=== PATIENT | male | born 1995 | race Caucasian/White ===

== ENCOUNTER 2023-12-30 13:34 | Emergency (ER) | payer SELFPAY ==
--- NOTE | 2023-12-30 14:31 | ER ---
Nurse's Notes [facility] Name: Jose Miguel Aguirre Age: 28 yrs Sex: Male : 1995 Arrival Date: 12/30/2023 Time: 13:34 Bed 12 Private MD: Diagnosis: Unspecified otitis externa, right ear Presentation: 12/29 13:55 Chief complaint: Patient states: right ear pain X2 weeks. Pt states that this started cm10 after cleaning his ear. Pt reports decreased hearing to right ear. Coronavirus screen: Client denies travel out of the [place] in the last 14 days. At this time, the client does not indicate any symptoms associated with coronavirus-19. Ebola Screen: Patient denies travel to an Ebola-affected area in the 21 days before illness onset. No symptoms or risks identified at this time. Initial Sepsis Screen: Does the patient meet any 2 criteria? HR > 90 bpm. Does the patient have a suspected source of infection? No. Patient's initial sepsis screen is negative. Risk Assessment: Do you want to hurt yourself or someone else? Patient reports no desire to harm self or others. Onset of symptoms was December 30, 2023. 13:55 Method Of Arrival: Ambulatory cm10 13:55 Acuity: JANELL 4 cm10 Triage Assessment: 13:57 General: Appears in no apparent distress. comfortable, Behavior is calm, cooperative. cm10 Pain: Complains of pain in right ear Pain currently is 4 out of 10 on a pain scale. EENT: Ear canal clear on right ear Reports pain in right ear. Neuro: No deficits noted. Level of Consciousness is awake, alert, obeys commands, Oriented to person, place, time, situation, Appropriate for age. Respiratory: No deficits noted. Airway is patent Respiratory effort is even, unlabored, Respiratory pattern is regular, symmetrical. Historical: - Allergies: 13:57 No Known Allergies; cm10 - Home Meds: 13:57 None [Active]; cm10 - PMHx: 13:57 None; cm10 - PSHx: 13:57 None; cm10 - Immunization history:: Adult Immunizations up to date. - Infectious Disease History:: Denies. - Social history:: Smoking status: Patient denies any tobacco usage or history of. Screenin:35 [facility] ED Fall Risk Assessment (Adult) History of falling in the last 3 months, cm10 including since admission No falls in past 3 months (0 pts) Confusion or Disorientation No (0 pts) Intoxicated or Sedated No (0 pts) Impaired Gait No (0 pts) Mobility Assist Device Used No (0 pt) Altered Elimination No (0 pt) Score/Fall Risk Level 0 - 2 = Low Risk Oriented to surroundings, Maintained a safe environment, Hourly rounding (assess needs \T\ fall precautionary measures) done. Abuse screen: Denies threats or abuse. Denies injuries from another. Nutritional screening: No deficits noted. Tuberculosis screening: No symptoms or risk factors identified. Assessment: 14:00 General: Appears comfortable, Behavior is calm, cooperative. Pain: Complains of pain in aa5 right ear. Neuro: Level of Consciousness is awake, alert, obeys commands, Oriented to person, place, time, situation. Cardiovascular: Patient's skin is warm and dry. Respiratory: Airway is patent Respiratory effort is even, unlabored, Respiratory pattern is regular, symmetrical. GI: No signs and/or symptoms were reported involving the gastrointestinal system. : No signs and/or symptoms were reported regarding the genitourinary system. EENT: Reports pain in right ear. Derm: Skin is pink, warm \T\ dry. Musculoskeletal: Range of motion: intact in all extremities. 14:40 Reassessment: Patient is alert, oriented x 3, equal unlabored respirations, skin aa5 warm/dry/pink. Vital Signs: 13:55 BP 140 / 77; Pulse 100; Resp 18; Temp 98.5; Pulse Ox 98% on R/A; Weight 70.76 kg; cm10 Height 6 ft. 4 in. ; Pain 4/10; 13:55 Body Mass Index 18.99 (70.76 kg, 193.04 cm) cm10 13:55 Pain Scale: Adult cm10 ED Course: 13:38 Patient arrived in ED. mg5 13:51 Keith Prescott PA is PHCP. cp 13:51 Kahlil Goode MD is Attending Physician. cp 13:57 Triage completed. cm10 13:58 Arm band placed on Patient placed in an exam room, on a stretcher. cm10 14:00 Patient has correct armband on for positive identification. aa5 14:30 Siena Ko MD is Referral Physician. cp 14:35 Provided Education on: Follow-up instructions. Cardiac monitoring not applicable on cm10 this patient. 14:36 No provider procedures requiring assistance completed. Patient did not have IV access cm10 during this emergency room visit. 14:42 Mary Cordova, RN is Primary Nurse. aa5 Administered Medications: No medications were administered Medication: 14:35 VIS not applicable for this client. cm10 Outcome: 14:31 Discharge ordered by MD. cp 14:40 Discharged to home ambulatory, aa5 14:40 Condition: stable 14:40 Discharge instructions given to patient, Instructed on discharge instructions, follow up and referral plans. medication usage, Demonstrated understanding of instructions, follow-up care, medications, Prescriptions given X 2, 14:42 Patient left the ED. aa5 Signatures: Mary Cordova, RN RN aa5 Keith Prescott PA PA cp Martinez, Clarissa RN RN cm10 Lyla Dodge mg5 Corrections: (The following items were deleted from the chart) 14:51 14:20 Reassessment: Patient is alert, oriented x 3, equal unlabored respirations, skin aa5 warm/dry/pink. aa5 14:52 14:35 Patient has correct armband on for positive identification. cm10 aa5
--- NOTE | 2023-12-30 14:31 | EDPHYS ---
Physician Documentation [facility] Name: Jose Miguel Aguirre Age: 28 yrs Sex: Male : 1995 Arrival Date: 12/30/2023 Time: 13:34 Bed 12 Private MD: ED Physician Kahlil Goode HPI: 12/29 14:25 This 28 yrs old Male presents to ER via Ambulatory with complaints of Ear Problem. cp 14:25 The patient presents with pain, that is acute. The complaints affect the right ear. cp Onset: The symptoms/episode began/occurred 2 week(s) ago. Associated signs and symptoms: Pertinent positives: slight cough, radiating pain to jaw. Patient reports pain started after using q-tip to clean ear. Historical: - Allergies: 13:57 No Known Allergies; cm10 - Home Meds: 13:57 None [Active]; cm10 - PMHx: 13:57 None; cm10 - PSHx: 13:57 None; cm10 - Immunization history:: Adult Immunizations up to date. - Infectious Disease History:: Denies. - Social history:: Smoking status: Patient denies any tobacco usage or history of. ROS: 14:26 Constitutional: Negative for body aches, chills, fever, poor PO intake, cp 14:26 ENT: Positive for ear pain, Negative for drainage from ear(s), sore throat, difficulty swallowing, difficulty handling secretions, 14:26 Cardiovascular: Negative for chest pain, 14:26 Eyes: Negative for injury, pain, redness, and discharge, cp 14:26 Respiratory: Positive for slight cough, Negative for shortness of breath, wheezing, 14:26 Neuro: Negative for altered mental status, headache, cp 14:26 All other systems are negative, Exam: 14:27 Head/Face: Normocephalic, atraumatic. cp 14:27 Constitutional: The patient appears in no acute distress, alert, awake, non-toxic, well developed, well nourished, 14:27 Eyes: Periorbital structures: appear normal, Conjunctiva: normal, no exudate, no injection, Sclera: no appreciated abnormality, Lids and lashes: appear normal, bilaterally, 14:27 ENT: External ear(s): pain with movement, that is mild, of the right ear canal, Ear canal(s): erythema, of the right canal, swelling, of the right canal, TM's: bulging, on the right, Examination of the other ear shows no obvious abnormality, Nose: is normal, Mouth: Lips: moist, Oral mucosa: pink and intact, moist, Posterior pharynx: Airway: no evidence of obstruction, patent, 14:27 Neck: ROM/movement: Meningeal signs: are not present, nuchal rigidity, is not appreciated, 14:27 Chest/axilla: Inspection: normal, Vital Signs: 13:55 BP 140 / 77; Pulse 100; Resp 18; Temp 98.5; Pulse Ox 98% on R/A; Weight 70.76 kg; cm10 Height 6 ft. 4 in. ; Pain 4/10; 13:55 Body Mass Index 18.99 (70.76 kg, 193.04 cm) cm10 13:55 Pain Scale: Adult cm10 MDM: 14:00 Patient medically screened. cp 14:30 Differential diagnosis: otitis media, otitis externa, ruptured TM, foreign body, acute cp otalgia, cerumen impaction. 14:30 Data reviewed: vital signs, nurses notes, and as a result, I will discharge patient. cp Counseling: I had a detailed discussion with the patient and/or guardian regarding the historical points, exam findings, and any diagnostic results supporting the discharge/admit diagnosis, to return to the emergency department if symptoms worsen or persist or if there are any questions or concerns that arise at home. Administered Medications: No medications were administered Disposition: 17:49 Co-signature as Attending Physician, Kahlil Goode MD I reviewed the patient's care rn provided by the Advanced Practice Provider and agree with the diagnosis and treatment plan. Disposition Summary: 12/30/23 14:31 Discharge Ordered Notes: Location: Home cp Problem: new cp Symptoms: are unchanged cp Condition: Stable cp Diagnosis - Unspecified otitis externa, right ear cp Followup: cp - With: Siena Ko MD - When: 1 week - Reason: pain continues Discharge Instructions: - Discharge Summary Sheet cp - Ear Drops, Adult cp - Otitis Externa cp Forms: - Medication Reconciliation Form cp - Antibiotic Education cp - Prescription Opioid Use cp - Patient Portal Instructions cp - Leadership Thank You Letter cp Prescriptions: - Augmentin 875-125 mg Oral Tablet - take 1 tablet ORAL route every 12 hours for 10 days; 20 tablet; Refills: 0, cp Product Selection Permitted - Cortisporin-TC 3.3-3-10-0.5 mg/mL Otic drops, suspension - instill 4 drops OTIC route every 6 hours for 7 days; 1 unit; Refills: 0, cp Product Selection Permitted Signatures: Kahlil Goode MD MD rn Keith Prescott PA PA cp Martinez, Clarissa, RN RN cm10
[2023-12-30 14:47] VITALS: BP 140/77; TEMP 98.5; O2SAT 98
== END 2023-12-30 14:42 | disposition home or self-care (01) ==
LOC: ER 13:34
DX: H60.91 Unspecified otitis externa, right ear (principal); R05.9 Cough, unspecified
CPT/HCPCS: 99283